=== PATIENT | female | born 1965 | race Native Hawaiian/Other Pacific Islander ===

== ENCOUNTER 2017-09-22 09:34 | Emergency (ER) | payer SELFPAY ==
[2017-09-22] MEDS ORDERED: XYLOCAINE 1% MPF 5 mL INFILTRATI ONE (10:14)
--- NOTE | 2017-09-22 10:37 | Emergency Department Report ---
HPI - General Chief Complaint: Skin/Abscess/Foreign Body Time Seen by Provider: 09/22/17 10:13 - HPI HPI: 51 yo F presents to the ED with the complaint of a painful bump to the middle of the back that has been there for about 1 week. It is in an area where she had anesthesia 7 years ago. She denies any fever, N/V. She denies any other past medical history. She was seen for this at a clinic recently and was placed on Bactrim, which she has been taking compliantely, but it has not improved. No recent travel or sick contacts at home. ED Past Medical Hx - Past Medical History Previous Medical History?: Yes - Surgical History Past Surgical History?: Yes Additional Surgical History: tumor removal. x 3 - Social History Smoking Status: Never Smoker Substance Use Type: None ED Review of Systems ROS: Stated complaint: BUMP ON BACK Other details as noted in HPI Comment: All other systems reviewed and negative Constitutional: denies: chills, fever Eyes: denies: eye pain, eye discharge, vision change ENT: denies: ear pain, throat pain Respiratory: denies: cough, shortness of breath, wheezing Cardiovascular: denies: chest pain, palpitations Gastrointestinal: denies: abdominal pain, nausea, diarrhea Genitourinary: denies: urgency, dysuria, discharge Musculoskeletal: back pain (localized to the bump). denies: myalgia Skin: lesions. denies: pruritus Neurological: denies: headache, weakness, paresthesias Physical Exam - Physical Exam Vital Signs: Vital Signs 09/22/17 09:42 Temperature 98.1 F Pulse Rate 65 Respiratory 16 Rate Blood Pressure 115/72 O2 Sat by Pulse 99 Oximetry ED Course Vital Signs 09/22/17 09:42 Temperature 98.1 F Pulse Rate 65 Respiratory 16 Rate Blood Pressure 115/72 O2 Sat by Pulse 99 Oximetry - I & D Back Type of Procedure: Simple Site: mid back Blade Size: 11 I & D Procedure: betadine prep, sterile drapes applied, sterile dressing applied , gauze wick placed Progress: Risks discussed and permission given. Cleaned with betadine. A 1 cm incision made in the middle of the abscess after 1 cc of 1% lidocaine without Epi was given with good local anesthesia. I used forceps to break up loculations and about 2 cc of pus was drained. Iodoform gauze placed inside the abscess and sterile dressing placed. Critical care attestation.: If time is entered above; I have spent that time in minutes in the direct care of this critically ill patient, excluding procedure time. ED Disposition Clinical Impression: Abscess Disposition: [id number] TO HOME OR SELFCARE Is pt being admited?: No Condition: Stable Instructions: Abscess (ED), Incision and Drainage (ED) Additional Instructions: Follow up with your primary care physician. The iodine gauzed in the abscess will need to be removed in two days and you will need a wound check. Return to the ED with any development of fever, worsening of your symptoms or any acute distress. Referrals: PRIMARY CARE, [Primary Care Provider] - 2-3 Days Time of Disposition: 10:37 Print Language: [place]
[2017-09-22 11:30] VITALS: BP 120/70
== END 2017-09-22 10:51 | disposition home or self-care (01) ==
LOC: ED 09:34
DX: L02.212 Cutaneous abscess of back [any part, except buttock and flank] (principal)
CPT/HCPCS: 99282

== ENCOUNTER 2017-09-25 07:05 | Emergency (ER) | payer SELFPAY ==
[2017-09-25 07:38] VITALS: BP 105/61
--- NOTE | 2017-09-25 08:13 | Emergency Department Report ---
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 She is not reporting any new problems. She denies any pain. Denies any fever or chills. Denies any nausea or vomiting. This is located to her posterior thorax. MD Complaint: wound re-check Onset/Timin -: days(s) Initial Visit For: abscess Returns Today for: wound recheck Symptoms Since Prior Visit: no new symptoms Context: planned re-check Associated Symptoms: none Treatments Prior to Arrival: Given Antibiotics on - Related Data Home Medications Medication Instructions Recorded Confirmed Last Taken Sulfamethoxazole/Trimethoprim 1 tab PO BID MDD 14 09/25/17 09/25/17 09/25/17 08: 12 [Bactrim Ds Tablet] Allergies Allergy/AdvReac Type Severity Reaction Status Date / Time No Known Allergies Allergy Verified 09/25/17 07:35 ED Review of Systems ROS: Stated complaint: WOUND CHECK Other details as noted in HPI Constitutional: denies: chills, fever Eyes: denies: vision change Respiratory: denies: cough, shortness of breath, SOB with exertion, SOB at rest , stridor, wheezing Cardiovascular: denies: chest pain, palpitations Gastrointestinal: denies: nausea, vomiting Musculoskeletal: denies: back pain, joint swelling, arthralgia, myalgia Skin: other (abscess with packing ). denies: rash, lesions ED Past Medical Hx - Past Medical History Previous Medical History?: No - Surgical History Past Surgical History?: Yes Additional Surgical History: tumor removal. x 3 - Family History Family history: no significant - Social History Smoking Status: Never Smoker Substance Use Type: None - Medications Home Medications: Home Medications Medication Instructions Recorded Confirmed Last Taken Type Sulfamethoxazole/Trimethoprim 1 tab PO BID MDD 14 09/25/17 09/25/17 09/25/17 08: 12 History [Bactrim Ds Tablet] ED Physical Exam - General Limitations: Language Barrier General appearance: alert, in no apparent distress - Head Head exam: Present: atraumatic, normocephalic, normal inspection - Eye Eye exam: Present: normal appearance, PERRL, EOMI - ENT ENT exam: Present: normal exam, normal orophraynx, mucous membranes moist - Neck Neck exam: Present: normal inspection, full ROM. Absent: tenderness, lymphadenopathy - Respiratory Respiratory exam: Present: normal lung sounds bilaterally. Absent: respiratory distress - Cardiovascular Cardiovascular Exam: Present: normal rhythm, bradycardia, normal heart sounds - Extremities Exam Extremities exam: Present: normal inspection, full ROM, normal capillary refill. Absent: tenderness, pedal edema - Back Exam Back exam: Present: normal inspection, full ROM, other (abscess with packing into posterior thorax). Absent: tenderness, CVA tenderness (R), CVA tenderness (L), muscle spasm, paraspinal tenderness, vertebral tenderness, rash noted - Neurological Exam Neurological exam: Present: alert, oriented X3, normal gait - Psychiatric Psychiatric exam: Present: normal affect, normal mood - Skin Skin exam: Present: warm, dry, other (abscess) - Expanded Skin Exam Expanded Type of lesion: Present: abscess Distribution of rash: thorax (posterior) Description of rash: Present: erythematous (mild surrounding erythema), swelling (mouth swelling). Absent: tenderness, discharge, fluctuant, indurated ED Course Vital Signs 09/25/17 07:35 Temperature 98 F Pulse Rate 55 L Respiratory 16 Rate Blood Pressure 105/61 O2 Sat by Pulse 99 Oximetry - Reevaluation(s) Reevaluation #1: 09/25/17 08:14 Patient had packing removed from posterior thorax where she had incision and drainage. No drainage noted and nontender to palpate. Area cleansed with iodine and normal saline and sterile dressing placed inside. 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 She was told to return packing removed. She does not have any new complaints and denies any pain. Patient is still taking Bactrim DS. Patient was seen and examined by myself. She was found to have mild erythema with mild swelling surrounding i affected area on her posterior thorax. Packing is dry externally. No drainage noted. Try to express pus from site but now will return. I discussed the patient that she needs to continue to take her Bactrim and if she develop any fever and/or chills, increased redness and drainage to return to the emergency room and she voiced understanding. Patient 4 encounter FOR packing removal from incision and drainage site-packing removed and area cleansed. Sterile dry dressing placed the site. Patient tolerated procedure well. Her tetanus vaccine is up-to-date Condition discharged home with her family to continue to take Bactrim. She is stable. Vital signs are stable she is afebrile. She is to follow-up with her primary care physician which she does have in 3-5 days Critical care attestation.: If time is entered above; I have spent that time in minutes in the direct care of this critically ill patient, excluding procedure time. ED Disposition Clinical Impression: Encounter for removal of abscess packing Disposition: - TO HOME OR SELFCARE Is pt being admited?: No Does the pt Need Aspirin: No Condition: Stable Instructions: Abscess (ED) Additional Instructions: Please see discharge instruction in acute wound care Apply warm compresses to affected area 4 times a day to facilitate then and increased drainage Today to take Bactrim DS for infection Follow-up with her primary care physician in 3-5 days. Return to the emergency room if, he developed fever, chills, increased pain and drainage from site, nausea and vomited, increase in redness and/or weakness. Referrals: PRIMARY CARE, [Primary Care Provider] - 3-5 Days [facility] [Outside] - 3-5 Days Print Language: [place]
== END 2017-09-25 08:20 | disposition home or self-care (01) ==
LOC: ED 07:05
DX: Z48.01 Encounter for change or removal of surgical wound dressing (principal); J86.9 Pyothorax without fistula